=== PATIENT | male | born 1955 | race Caucasian/White ===

== ENCOUNTER 2025-03-12 07:09 | Inpatient (IN) | payer OTHER, MEDICAID ==
[~2025-03-12] VITALS: Ht 172.7 cm; Wt 68.0 kg
[2025-03-12] MEDS: SODIUM CHLORIDE 0.9% 1,000 ML IV ONE ×2 (07:30→10:35)
[2025-03-12] MEDS: levETIRAcetam 1000 mg/100ml 100 ML IV ONE (07:30)
--- NOTE | 2025-03-12 07:31 | ECG ---
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
--- NOTE | 2025-03-12 07:38 | ED.PDOC ---
HPI (NEURO) HPI Comments 70 y/o M, BIBA, with PMHx of epilepsy and HLD presents to the ED for CC of s/p seizure. EMS reports, patient is coming from home where he was found on bed room floor by , followed by a seizure lasting around 4-5 minutes. EMS states, patient has been disoriented since arrival to scene; A&Ox0. Patient is currently on Keppra, Xarelto, and Atorvastatin; no other medications reported. 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, Medications, Allergies Information Source: Patient Mode of Arrival: EMS Severity: Moderate Headache Severity: None Timing: Minutes Duration: Since onset Prehospital treatment: None Seizure Quality: Single Episodes Seizure Location: Generalized Onset: At rest Circumstances: Spontaneous Symptoms: None During: Awake After: Confusion History of: Seizure Disorder Modifying factors: Nothing Past Medical History PAST MEDICAL HISTORY: Seizures Surgical History: Unknown Family History Family History: Unknown Social History Smoker: Non-Smoker Alcohol: Denies ETOH Use Drugs: Denies Drug Use Lives In: Home Unable to Obtain due to: Other (disoriented) Physical Exam General Appearance: No Apparent Distress, Normal HEENT: Normal ENT Inspection, Pharynx Normal, TMs Normal Neck: Full Range of Motion, Non-Tender, Normal, Normal Inspection Respiratory: Chest Non-Tender, Lungs Clear, No Accessory Muscle Use, No Respiratory Distress, Normal Breath Sounds Cardiovascular: No Edema, No Murmur, No Gallop, Normal Peripheral Pulses, Regular Rate/Rhythm Breast Exam: Deferred Gastrointestinal: No Organomegaly, Non Tender, No Pulsatile Mass, Normal Bowel Sounds, Soft Genitalia: Deferred Pelvic: Deferred Rectal: Deferred Extremities: No calf tenderness, Normal capillary refill, Normal inspection, Normal range of motion, Non-tender, No pedal edema Musculoskeletal : Apperance: Normal Neurologic: Disoriented, Other (arousable to painful stimuli) Cerebellar Function: Normal Reflexes: Normal Skin: Dry, Normal Color, Warm Lymphatic: No Adenopathy Was a procedure done? Was a procedure done?: No Differential Diagnosis (SZ) Seizure: Epilepsy-Break Through, Epilepsy-Status X-Ray, Labs, Meds, VS Vital Signs Date Time Temp Pulse Resp B/P (MAP) Pulse Ox O2 Delivery O2 Flow Rate FiO2 5/6/25 10:00 70 18 128/75 (92) 96 03/12/25 08:55 69 17 94 Room Air* 0 21 03/12/25 08:28 77 03/12/25 08:12 64 18 125/79 (94) 96 03/12/25 07:18 98.9 105 18 136/78 (97) 94 98.9 03/12/25 07:12 79 Lab Test 03/12/25 09:17 03/12/25 09:16 03/12/25 08:15 Range/Units Urine Color Light-yellow Yellow Urine Clarity Clear Clear Urine pH 5.0 5.0-9.0 Urine Specific [place] 1.018 1.001-1.035 Urine Protein 1+ H Negative Urine Ketones Trace Negative Urine Blood 2+ H Negative /uL Urine Nitrite Negative Negative Urine Bilirubin Negative Negative Urine Urobilinogen Normal Negative mg/dL Urine Leukocyte Esterase Negative Negative /uL Urine RBC 1 0 - 3 /hpf Urine Microscopic WBC < 1 0-3 /HPF Urine Squamous Epithelial Cells None seen <5 /hpf Urine Bacteria Few H None Seen /hpf Urine Hyaline Casts Mod 0 - 2 /lpf Urine Mucus Few None Seen Urine Yeast (Budding) Occasional None Seen /hpf Urine Glucose 3+ H Normal mg/dL Troponin I High Sensitivity 5 4 </=54 ng/L White Blood Count 11.9 H 4.4-10.8 10^3/uL Red Blood Count 4.42 L 4.5-5.90 10^6/uL Hemoglobin 13.8 13.5-17.5 g/dL Hematocrit 40.5 L 41.0-53.0 % Mean Corpuscular Volume 91.7 80.0-100.0 fL Mean Corpuscular Hemoglobin 31.2 28.0-32.0 pg Mean Corpuscular Hemoglobin Concent 34.0 32.0-36.0 g/dL Red Cell Distribution Width 13.6 11.8-14.3 % Platelet Count 196 140-450 10^3/uL Mean Platelet Volume 7.5 6.9-10.8 fL Neutrophils (%) (Auto) 91.2 H 37.0-80.0 % Lymphocytes (%) (Auto) 4.0 L 10.0-50.0 % Monocytes (%) (Auto) 4.5 0.0-12.0 % Eosinophils (%) (Auto) 0.1 0.0-7.0 % Basophils (%) (Auto) 0.2 0.0-2.0 % Neutrophils # (Auto) 10.9 H 1.6-8.6 10 ^3/uL Lymphocytes # (Auto) 0.5 0.4-5.4 10 ^3/uL Monocytes # (Auto) 0.5 0-1.3 10 ^3/uL Eosinophils # (Auto) 0 0-0.8 10 ^3/uL Basophils # (Auto) 0 0-0.2 10 ^3/uL Nucleated Red Blood Cells 0.0 % Sodium Level 142 136-145 mmol/L Potassium Level 4.5 3.5-5.1 mmol/L Chloride Level 107 98-107 mmol/L Carbon Dioxide Level 27 20-31 mmol/L Anion Gap 8 5-15 Blood Urea Nitrogen 15 9-23 mg/dL Creatinine 1.03 0.700-1.30 mg/dL Glomerular Filtration Rate Calc 79 >90 mL/min BUN/Creatinine Ratio 14.6 10.0-20.0 Serum Glucose 209 H 74-106 mg/dL Lactic Acid Level 4.0 *H 0.4-2.0 mmol/L Calcium Level 9.9 8.7-10.4 mg/dL Current Medications Medications (Trade) Dose Ordered Sig/Nayeli Route Start Time Stop Time Status Last Admin Sodium Chloride 1,000 ml @ 1,000 mls/hr Q1H ONCE IV 03/12/25 07:30 03/12/25 08:29 DC 03/12/25 07:30 Levetiracetam 100 ml @ 400 mls/hr ONCE ONCE IV 03/12/25 07:30 03/12/25 07:44 DC 03/12/25 07:30 Dextrose 50 ml ONCE ONCE IV 03/12/25 07:45 03/12/25 07:46 DC 03/12/25 07:49 Sodium Chloride 1,000 ml @ 1,000 mls/hr Q1H ONCE IV 03/12/25 10:15 03/12/25 11:14 03/12/25 10:[address] [address] Ph: [phone] DIAGNOSTIC IMAGING Diagnostic Imaging Report : [id number] Signed PATIENT: RIZWANA WASHINGTON Baldemar ACCT: [id number] UNIT: [id number] : 1955 LOC: ER ROOM / BED: / AGE / SEX: 69 / M ADM STATUS: REG ER SERVICE 9 ORDERING PHYSICIAN: DAVIDE BARNARD MD PROCEDURE(s): CXRP - CHEST PORTABLE REASON: seizure ORDER NUMBER(s): [id number], ACCESSION NUMBER(s): [id number] EXAM: XY CHEST PORTABLE Indication: seizure Technique: Single frontal view of the chest was obtained Comparison: None FINDINGS: Lines and Tubes: Cardiac pacemaker projects over left chest wall. Lungs: No focal consolidation. Pleura: No effusion. No pneumothorax. Cardiomediastinal contours: Unremarkable. Atherosclerotic vascular calcifications of the thoracic aorta are noted. Bones: No acute osseous abnormality. IMPRESSION: No acute cardiopulmonary disease. ATED BY: CRIS VILLANUEVA MD DICTATED DATE/TIME: 03/12/25819 SIGNED BY: CRIS VILLANUEVA MD SIGNED DATE/TIME: 03/12/25819 CC: [place] [id number] Ph: [phone] DIAGNOSTIC IMAGING Diagnostic Imaging Report : [id number] Signed PATIENT: RIZWANA WASHINGTON ACCT: [id number] UNIT: [id number] : 11/27/1954 LOC: ER ROOM / BED: / AGE / SEX: 70 / M ADM STATUS: REG ER SERVICE 9 ORDERING PHYSICIAN: DAVIDE BARNARD MD PROCEDURE(s): HWOCT - HEAD WITHOUT CONTRAST REASON: seizure, headstrike on xarelto ORDER NUMBER(s): [id number], ACCESSION NUMBER(s): [id number] CLINICAL INFORMATION: Seizure. Head strike. On Xarelto. TECHNIQUE: Axial imaging was obtained through the brain without contrast. Coronal and sagittal reformatted images were obtained, reviewed, and stored. Images were reviewed in brain and bone windows. All CT scans at this medical facility are performed using dose modulation techniques as appropriate to a performed exam including the following: Automated exposure control was utilized; adjustment of the MA and/or KV according to patient size; and use of iterative reconstruction technique. CTDIvol = 47.94 mGy DLP = 1107.1 mGy-cm COMPARISON: None FINDINGS: There is no acute intracranial hemorrhage. No mass effect or midline shift. The ventricles and sulci are within normal limits in size for age. Basal cisterns are patent. The calvarium is unremarkable. Paranasal sinuses and ma stoid air cells are clear. IMPRESSION: No CT evidence of acute intracranial abnormality. ATED BY: RODRIGUEZ MOLINA DO DICTATED DATE/TIME: 03/12/25815 SIGNED BY: RODRIGUEZ MOLINA DO SIGNED DATE/TIME: 03/12/25815 CC: Time of 1ST Reevaluation: 08:00 Reevaluation 1ST: Unchanged Patient Education/Counseling: Diagnosis, Treatment Family Education/Counseling: No Family Present Departure 1 Departure Time of Disposition: 10:42 (Patient with worsening seizures. Family is concerned about taking care of him at home. We will admit patient for further workup.) Impression: Primary Impression: Seizure disorder Disposition: ADMITTED INPATIENT Admit to: Med Surg Condition: Serious Critical Care Note Critical Care Time?: Yes Critical care comment: Seizures Authorized and Performed by: Davide Barnard MD Total critical care time: Approximately 32 minutes Due to a high probability of clinically significant, life threatening deterioration, the patient required my highest level of preparedness to intervene emergently and I personally spent this critical care time directly and personally managing the patient. This critical care time included obtaining a history; examining the patient; pulse oximetry; ordering and review of studies; arranging urgent treatment with development of a management plan; evaluation of patient's response to treatment; frequent reassessment; and, discussions with other providers. This critical care time was performed to assess and manage the high probability of imminent, life-threatening deterioration that could result in multi-organ failure. It was exclusive of separately billable procedures and treating other patients and teaching time. Please see my other sections and the rest of the note for further information on patient assessment and treatment. Stability Stability form required: No Heart Score Heart Score: Heart Score Response (Comments) Value History N/A 0 EKG N/A 0 Age N/A 0 Risk Factors N/A 0 Troponin N/A 0 Total 0 I personally scribed for DAVIDE BARNARD MD ([email or web address]) on 03/12/25 at 07:38. Electronically submitted by Krysten Woodson ([email or web address]). I personally scribed for DAVIDE BARNARD MD ([email or web address]) on 03/12/25 at 08:39. Electronically submitted by Krysten Woodson ([email or web address]). I personally scribed for DAVIDE BARNARD MD ([email or web address]) on 03/12/25 at 08:40. Electronically submitted by Krysten Woodson ([email or web address]). DAVIDE BARNARD MD March 12, 2025 07:38
[2025-03-12] MEDS: DEXTROSE (50%) 50ML SYRG IV ONE (07:49)
[2025-03-12] MEDS: DEXTROSE 50% SYRINGE 50 ML IV ONE (07:49)
--- NOTE | 2025-03-12 08:19 | DVH ---
CLINICAL INFORMATION: Seizure. Head strike. On Xarelto. TECHNIQUE: Axial imaging was obtained through the brain without contrast. Coronal and sagittal reform atted images were obtained, reviewed, and stored. Images were reviewed in brain and bone windows. Al l CT scans at this medical facility are performed using dose modulation techniques as appropriate to a performed exam including the following: Automated exposure control was utilized; adjustment of the MA and/or KV according to patient size; and use of iterative reconstruction technique. CTDIvol = 47.9 4 mGy DLP = 1107.1 mGy-cm COMPARISON: None FINDINGS: There is no acute intracranial hemorrhage. No mass effect or midline shift. The ventricles and sulci are within normal limits in size for age. Basal cisterns are patent. The calvarium is unre markable. Paranasal sinuses and mastoid air cells are clear. IMPRESSION: No CT evidence of acute intracranial abnormality.
--- NOTE | 2025-03-12 08:23 | DVH ---
EXAM: XY CHEST PORTABLE Indication: seizure Technique: Single frontal view of the chest was obtained Comparison: None FINDINGS: Lines and Tubes: Cardiac pacemaker projects over left chest wall. Lungs: No focal consolidation. Pleura: No effusion. No pneumothorax. Cardiomediastinal contours: Unremarkable. Atherosclerotic vascular calcifications of the thoracic ao rta are noted. Bones: No acute osseous abnormality. IMPRESSION: No acute cardiopulmonary disease.
[2025-03-12 08:43] LABS: Basophils # (auto) 0 10 ^3/uL (0-0.2); Basophils % (auto) 0.2 % (0.0-2.0); Eosinophils # (auto) 0 10 ^3/uL (0-0.8); Eosinophils % (auto) 0.1 % (0.0-7.0); Hematocrit 40.5 % (41.0-53.0); Hemoglobin 13.8 g/dL (13.5-17.5); Lymphocytes # (auto) 0.5 10 ^3/uL (0.4-5.4); Mean Corpuscular Hemoglobin 31.2 pg (28.0-32.0); Mean Corpuscular Volume 91.7 fL (80.0-100.0); Monocytes # (auto) 0.5 10 ^3/uL (0-1.3); Monocytes % (auto) 4.5 % (0.0-12.0); Neutrophils # (auto) 10.9 10 ^3/uL (1.6-8.6); Neutrophils % (auto) 91.2 % (37.0-80.0); Platelet Count (auto) 196 10^3/uL (140-450); Red Blood Cells 4.42 10^6/uL (4.5-5.90); Red Cell Distribution Width 13.6 % (11.8-14.3); White Blood Cell 11.9 10^3/uL (4.4-10.8)
[2025-03-12 08:46] LABS: Chloride 107 mmol/L (98-107); Potassium 4.5 mmol/L (3.5-5.1); Sodium 142 mmol/L (136-145)
[2025-03-12 08:47] LABS: Anion Gap 8 (5-15); Calcium 9.9 mg/dL (8.7-10.4); Carbon Dioxide 27 mmol/L (20-31)
[2025-03-12 08:52] LABS: BUN/Creatinine Ratio 14.6 (10.0-20.0); Blood Urea Nitrogen 15 mg/dL (9-23)
[2025-03-12 08:53] LABS: Glucose 209 mg/dL (74-106)
[2025-03-12 08:55] VITALS: PULSE 69; RESP 17; O2SAT 94
[2025-03-12 09:50] LABS: Urine Bacteria FEW /hpf (None Seen); Urine Blood 2+ /uL (Negative); Urine Budding Yeast OCCASIONAL /hpf (None Seen); Urine Clarity Clear (Clear); Urine Color Light-Yellow (Yellow); Urine Hyaline Cast MOD /lpf (0 - 2); Urine Mucus FEW (None Seen); Urine Protein, UAD 1+ (Negative); Urine Specific Gravity 1.018 (1.001-1.035); Urine Squamous Epithelial Cell None Seen /hpf (<5); Urine Urobilinogen Normal (Negative); Urine WBC < 1 /HPF (0-3)
[2025-03-12] MEDS ORDERED: MORPHINE SULFATE INJ 2 MG/ml SYRG IV PRN (13:45)
[2025-03-12] MEDS ORDERED: ONDANSETRON HCL 4 MG/2 ML VIAL IV PRN (13:45)
[2025-03-12] MEDS ORDERED: DOCUSATE SOD 100 MG CAP PO PRN (13:45)
[2025-03-12] MEDS ORDERED: NITROGLYCERIN 0.4 MG SL TAB SL PRN (13:45)
[2025-03-12] MEDS ORDERED: ATOR10TA52 PO (13:50)
[2025-03-12] MEDS ORDERED: MET25T PO (13:50)
[2025-03-12] MEDS ORDERED: LEVO50TA7 PO (13:50)
[2025-03-12] MEDS ORDERED: LEVE500T3 PO (13:50)
--- NOTE | 2025-03-12 14:06 | DVHHP2 ---
History of Present Illness Reason for Visit: Seizure History of Present Illness Sang Moore is a 69-year-old male with past medical history of hypothyroidism, hyperlipidemia, and seizures who came in for a seizure. Per EMS the patient was at home when he had a seizure witnessed by his , she called EMS. On assessment the patient is oriented x1, can tell me he is in the hospital, but not what hospital or what city he is in. He is repetitive when answering questions and keeps telling me he is just tired. I attempted to come and assess the patient again a couple hours later but he continues to not be able to answer my questions appropriately. He is not sure what the date is, who the president is, or his past medical history. 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 Endocrine: Hypothyroidism Past Surgical History: Tonsillectomy Smoke: No ALCOHOL: none Drugs: None Lives: with Family Domestic Violence: Neg Review of Systems Constitutional: No: Fever, Chills, Sweats, Weakness, Malaise, Other Eyes: No: Pain, Vision change, Conjunctivae inflammation, Eyelid inflammation, Other, Redness ENT: No: Ear pain, Ear discharge, Nose pain, Nose discharge, Nose congestion, Mouth pain, Mouth swelling, Throat pain, Throat swelling, Other Respiratory: No: Cough, Dry, Shortness of breath, SOB with excertion, Wheezing, Hemoptysis, Pleuritic Pain, Sputum, Wheezing, Other Cardiovascular: No: Chest Pain, Palpitations, Orthopnea, Paroxysmal Noc. Dyspnea, Edema, Lt Headedness, Other Gastrointestinal: No: Nausea, Vomiting, Abdominal Pain, Diarrhea, Constipation, Melena, Hematochezia, Other Genitourinary: No Dysuria, No Frequency, No Incontinence, No Hematuria, No Retention, No Other Musculoskeletal: No: other, neck pain, shoulder pain, arm pain, back pain, hand pain, leg pain, foot pain Skin: No: Rash, Lesions, Jaundice, Bruising, Other Neurological: Confusion, Seizures; No: Weakness, Numbness, Incoordination, Change in speech, Other Allergies: Coded Allergies: NO KNOWN ALLERGIES (Unverified , 03/12/25) Medications Current Medications Medications Dose Ordered Sig/Nayeli Route Start Time Stop Time Status Last Admin Dose Admin Acetaminophen/ Hydrocodone Bitart 1 tab Q4HP PRN PO 03/12/25 13:45 UNV Ondansetron HCl 4 mg Q4HP PRN IV 03/12/25 13:45 UNV Docusate Sodium 100 mg BIDPRN PRN PO 03/12/25 13:45 UNV Acetaminophen 650 mg Q6HP PRN PO 03/12/25 13:45 UNV Nitroglycerin 0.4 mg Q5MINP PRN SL 03/12/25 13:45 UNV Morphine Sulfate 2 mg Q30M PRN IV 03/12/25 13:45 UNV Levetiracetam 500 mg BID PO 03/12/25 22:00 UNV Levothyroxine Sodium 50 mcg DAILY PO 03/13/25 10:00 UNV Metoprolol Tartrate 25 mg BID PO 03/12/25 22:00 UNV Patient Own Medication 1 tab DAILY PO 03/13/25 10:00 UNV Exam Vital Signs Vital Signs Date Time Temp Pulse Resp B/P (MAP) Pulse Ox O2 Delivery O2 Flow Rate FiO2 03/12/25 12:00 65 03/12/25 12:00 19 127/73 (91) 100 03/12/25 08:55 Room Air* 0 21 03/12/25 07:18 98.9 98.9 General Appearance: Alert, Cooperative, Other (Oriented x1, can tell me he is in the hospital, but not what hospital or what city he is in. He is repetitive when answering questions) HEENT: Atraumatic, PERRLA Respiratory: Clear to auscultation, Normal air movement Cardiovascular: Regular rate, Normal S1, Normal S2 Abdominal: Normal bowel sounds, Soft, No tenderness Extremities: No clubbing, No cyanosis, No edema, Normal pulses Skin: No rashes, No breakdown, No significant lesion Neuro: Other (Oriented x1, can tell me he is in the hospital, but not what hospital or what city he is in. He is repetitive when answering questions. Unable to provide medical history. States he is sorry, he is tired) Psych/Mental Status: Mental status NL Labs/Xrays Labs Test 03/12/25 11:00 03/12/25 09:17 03/12/25 08:15 Range/Units Lactic Acid Level 1.4 0.4-2.0 mmol/L Troponin I High Sensitivity 7 </=54 ng/L Urine Color Light-yellow Yellow Urine Clarity Clear Clear Urine pH 5.0 5.0-9.0 Urine Specific [place] 1.018 1.001-1.035 Urine Protein 1+ H Negative Urine Ketones Trace Negative Urine Blood 2+ H Negative /uL Urine Nitrite Negative Negative Urine Bilirubin Negative Negative Urine Urobilinogen Normal Negative mg/dL Urine Leukocyte Esterase Negative Negative /uL Urine RBC 1 0 - 3 /hpf Urine Microscopic WBC < 1 0-3 /HPF Urine Squamous Epithelial Cells None seen <5 /hpf Urine Bacteria Few H None Seen /hpf Urine Hyaline Casts Mod 0 - 2 /lpf Urine Mucus Few None Seen Urine Yeast (Budding) Occasional None Seen /hpf Urine Glucose 3+ H Normal mg/dL White Blood Count 11.9 H 4.4-10.8 10^3/uL Red Blood Count 4.42 L 4.5-5.90 10^6/uL Hemoglobin 13.8 13.5-17.5 g/dL Hematocrit 40.5 L 41.0-53.0 % Mean Corpuscular Volume 91.7 80.0-100.0 fL Mean Corpuscular Hemoglobin 31.2 28.0-32.0 pg Mean Corpuscular Hemoglobin Concent 34.0 32.0-36.0 g/dL Red Cell Distribution Width 13.6 11.8-14.3 % Platelet Count 196 140-450 10^3/uL Mean Platelet Volume 7.5 6.9-10.8 fL Neutrophils (%) (Auto) 91.2 H 37.0-80.0 % Lymphocytes (%) (Auto) 4.0 L 10.0-50.0 % Monocytes (%) (Auto) 4.5 0.0-12.0 % Eosinophils (%) (Auto) 0.1 0.0-7.0 % Basophils (%) (Auto) 0.2 0.0-2.0 % Neutrophils # (Auto) 10.9 H 1.6-8.6 10 ^3/uL Lymphocytes # (Auto) 0.5 0.4-5.4 10 ^3/uL Monocytes # (Auto) 0.5 0-1.3 10 ^3/uL Eosinophils # (Auto) 0 0-0.8 10 ^3/uL Basophils # (Auto) 0 0-0.2 10 ^3/uL Nucleated Red Blood Cells 0.0 % Sodium Level 142 136-145 mmol/L Potassium Level 4.5 3.5-5.1 mmol/L Chloride Level 107 98-107 mmol/L Carbon Dioxide Level 27 20-31 mmol/L Anion Gap 8 5-15 Blood Urea Nitrogen 15 9-23 mg/dL Creatinine 1.03 0.700-1.30 mg/dL Glomerular Filtration Rate Calc 79 >90 mL/min BUN/Creatinine Ratio 14.6 10.0-20.0 Serum Glucose 209 H 74-106 mg/dL Calcium Level 9.9 8.7-10.4 mg/dL TECHNIQUE: Axial imaging was obtained through the brain without contrast. FINDINGS: There is no acute intracranial hemorrhage. No mass effect or midline shift. The ventricles and sulci are within normal limits in size for age. Basal cisterns are patent. The calvarium is unremarkable. Paranasal sinuses and mastoid air cells are clear. IMPRESSION: No CT evidence of acute intracranial abnormality. EXAM: XY CHEST PORTABLE FINDINGS: Lines and Tubes: Cardiac pacemaker projects over left chest wall. Lungs: No focal consolidation. Pleura: No effusion. No pneumothorax. Cardiomediastinal contours: Unremarkable. Atherosclerotic vascular calcifications of the thoracic aorta are noted. Bones: No acute osseous abnormality. IMPRESSION: No acute cardiopulmonary disease. Assessment/Plan Assessment/Plan Assessment: Seizure disorder, Hyperglycemia, Hypothyroidism, Hyperlipidemia, Plan: Admit to Tele, Neurology consult, Seizure precautions, TSH and A1c, Accu checks Q AC&HS with sliding scale coverage, Home medications reconciled, Plan discussed with: Patient My Orders Orders - DUARTE BALDERAS Procedure Category Date Status Time Admit ADMIT 03/12/25 Transmitted 13:43 Code Status CODE 03/12/25 Transmitted 13:43 Hydrocodone-Acet PHA 03/12/25 Logged 5/325mg Tab ([place] 13:45 Ondansetron Hcl PHA 03/12/25 Logged (Zofran) 13:45 Docusate Sodium PHA 03/12/25 Logged Capsule (Colace 13:45 Complete Blood Count LAB 03/13/25 Verified 04:00 Comprehensive LAB 03/13/25 Verified Metabolic Panel 04:00 Condition: Critical [facility] 03/12/25 In Process 13:43 Acetaminophen Tablet PHA 03/12/25 Logged (Tylenol Tablet) 13:45 Nitroglycerin PHA 03/12/25 Logged Sublingual (Ntrostat 13:45 Morphine Sulfate PHA 03/12/25 Logged Injection 13:45 Stat Ekg For Chest [facility] 03/12/25 Transmitted Pain 13:43 Notify Md Of Changes [facility] 03/12/25 In Process From Base 13:43 Telemarketing Representative For [facility] 03/12/25 In Process 24 Hours 13:43 Emergency Dysrhythmia [facility] 03/12/25 In Process Protocol 13:43 Rhythm Strips Once [facility] 03/12/25 In Process Every Shift 13:43 Oxygen By Nasal 03/12/25 Transmitted Cannula 13:43 Levetiracetam Tablet [facility] 03/12/25 Logged (Keppra Tablet) 22:00 Levothyroxine Tablet [facility] 03/13/25 Logged (Synthroid Tablet) 10:00 Metoprolol Tartrate [facility] 03/12/25 Logged Tablet (Lopressor Ta 22:00 (Nf) Atorvastatin [facility] 03/13/25 Logged Calcium 10:00 Date of Service: March 12, 2025 Billing Provider: DUARTE BALDERAS Common Visit Codes: [id number] INP/OBS CARE (MOD) DUARTE BALDERAS March 12, 2025 14:06
[2025-03-12] MEDS ORDERED: DEXTROSE (50%) 50ML SYRG IV PRN (18:00)
[2025-03-12 20:00] VITALS: PULSE 65; RESP 16; O2SAT 97
[2025-03-12] MEDS: InsuLIN REG 1unit/0.01ml Soln (100units/ml) SC SCH (22:00)
[2025-03-12] MEDS: ATORVASTATIN 20 MG TAB PO SCH (22:12)
[2025-03-12] MEDS: levETIRAcetam 500 MG TAB PO SCH (22:12)
[2025-03-12] MEDS: METOPROLOL TARTRATE 25 MG TAB PO SCH (22:13)
[2025-03-12] MEDS: ACCU-CHEK COMFORT CURVE STRIP VI SCH (22:15)
[2025-03-12 22:57] VITALS: BP 131/73; PULSE 66; RESP 18; TEMP 99.3; O2SAT 97
[2025-03-13] VITALS (8 sets, daily range): BP systolic 99–131; BP diastolic 59–82; PULSE 42–90; RESP 18; TEMP 97.6–99; O2SAT 98
[2025-03-13] MEDS: LEVOTHYROXINE SODIUM 50 MCG TAB PO SCH (06:17)
[2025-03-13] MEDS: InsuLIN REG 1unit/0.01ml Soln (100units/ml) SC SCH (06:18)
[2025-03-13 07:09] LABS: Basophils # (auto) 0.1 10 ^3/uL (0-0.2); Basophils % (auto) 0.6 % (0.0-2.0); Eosinophils # (auto) 0 10 ^3/uL (0-0.8); Eosinophils % (auto) 0.5 % (0.0-7.0); Hematocrit 39.5 % (41.0-53.0); Hemoglobin 13.7 g/dL (13.5-17.5); Lymphocytes # (auto) 1.1 10 ^3/uL (0.4-5.4); Mean Corpuscular Hemoglobin 31.5 pg (28.0-32.0); Mean Corpuscular Hgb Conc. 34.7 g/dL (32.0-36.0); Mean Corpuscular Volume 90.6 fL (80.0-100.0); Monocytes # (auto) 0.9 10 ^3/uL (0-1.3); Monocytes % (auto) 9.3 % (0.0-12.0); Neutrophils # (auto) 7.5 10 ^3/uL (1.6-8.6); Neutrophils % (auto) 78.6 % (37.0-80.0); Platelet Count (auto) 178 10^3/uL (140-450); Red Blood Cells 4.37 10^6/uL (4.5-5.90); Red Cell Distribution Width 13.5 % (11.8-14.3); White Blood Cell 9.6 10^3/uL (4.4-10.8)
[2025-03-13 07:25] LABS: Alanine Aminotransferase 25 U/L (7-40); Albumin 4.1 g/dL (3.2-4.8); Alkaline Phosphatase 50 U/L (46-116); Anion Gap 7 (5-15); Aspartate Aminotransferase 22 U/L (13-40); BUN/Creatinine Ratio 18.3 (10.0-20.0); Blood Urea Nitrogen 15 mg/dL (9-23); Calcium 9.8 mg/dL (8.7-10.4); Carbon Dioxide 25 mmol/L (20-31); Glucose 106 mg/dL (74-106); Potassium 4.1 mmol/L (3.5-5.1); Sodium 144 mmol/L (136-145)
[2025-03-13 07:26] LABS: Bilirubin, Total 1.2 mg/dL (0.2-1.0)
[2025-03-13 07:31] LABS: Chloride 112 mmol/L (98-107)
[2025-03-13] MEDS: HYDROcodone-ACET 5/325MG TAB PO PRN (16:10)
--- NOTE | 2025-03-13 22:44 | DVHPN2 ---
Subjective The patient is seen and examined at bedside. No seizure activity today. Reviewed: Care Plan, H&P, Labs, Medications, Previous Orders Changes from previous H/P or p: No Changes Eyes: No Pain, No Vision change, No Conjunctivae inflammation, No Eyelid inflammation, No Other, No Redness ENT: No Ear pain, No Ear discharge, No Nose pain, No Nose discharge, No Nose congestion, No Mouth pain, No Mouth swelling, No Throat pain, No Throat swelling, No Other Cardiovascular: No Chest Pain, No Palpitations, No Orthopnea, No Paroxysmal Noc. Dyspnea, No Edema, No Lt Headedness, No Other Respiratory: No Cough, No Dry, No Shortness of breath, No SOB with excertion, No Wheezing, No Hemoptysis, No Pleuritic Pain, No Sputum, No Other Gastrointestinal: No Nausea, No Vomiting, No Abdominal Pain, No Diarrhea, No Constipation, No Melena, No Hematochezia, No Other Genitourinary: No Dysuria, No Frequency, No Incontinence, No Hematuria, No Retention, No Other Musculoskeletal: No other, No neck pain, No shoulder pain, No arm pain, No back pain, No hand pain, No leg pain, No foot pain Skin: No Rash, No Lesions, No Jaundice, No Bruising, No Other Objective Vitals Vital Signs Date Time Temp Pulse Resp B/P (MAP) Pulse Ox O2 Delivery O2 Flow Rate FiO2 03/13/25 21:17 79 131/71 03/13/25 17:00 98.5 18 98 98.5 03/13/25 08:00 Room Air* 0 21 Intake/Output Intake and Output 03/13/25 07:00 Intake Total 2650 ml Balance 2650 ml Intake Oral 250 ml IV Total 2400 ml # Voids 2 # Bowel Movements 1 General Appearance: Alert, Oriented X3, Cooperative, No acute distress HEENT: Atraumatic, PERRLA, EOMI, Mucous membr. moist/pink Neck: Supple Lungs: Clear to auscultation, Normal air movement Cardiovascular: Regular rate, Normal S1, Normal S2, No murmurs, Gallops, Rubs Abdomen: Normal bowel sounds, Soft, No tenderness Neuro: Cranial nerves 3-12 NL Psych/Mental Status: Mental status NL Medications Current Medications Medications Dose Ordered Sig/Nayeli Route Start Time Stop Time Status Last Admin Dose Admin Acetaminophen/ Hydrocodone Bitart 1 tab Q4HP PRN PO 03/12/25 13:45 03/13/25 16:10 1 TAB Ondansetron HCl 4 mg Q4HP PRN IV 03/12/25 13:45 Docusate Sodium 100 mg BIDPRN PRN PO 03/12/25 13:45 Acetaminophen 650 mg Q6HP PRN PO 03/12/25 13:45 Nitroglycerin 0.4 mg Q5MINP PRN SL 03/12/25 13:45 Morphine Sulfate 2 mg Q30M PRN IV 03/12/25 13:45 Levetiracetam 500 mg BID PO 03/12/25 22:00 03/13/25 21:16 500 MG Levothyroxine Sodium 50 mcg QAM PO 03/13/25 07:00 03/13/25 06:17 50 MCG Metoprolol Tartrate 25 mg BID PO 03/12/25 22:00 03/13/25 21:17 25 MG Atorvastatin Calcium 10 mg HS PO 03/12/25 22:00 03/13/25 21:16 10 MG Diagnostic Test (Pha) 1 strip ACHS 03/12/25 22:00 03/13/25 21:17 1 STRIP Insulin Human Regular HS SC 03/12/25 22:00 Insulin Human Regular AC SC 03/13/25 07:00 Dextrose 50 ml UD PRN IV 03/12/25 18:00 Laboratory Results Laboratory Tests 03/13/25 06:46 Chemistry Test 03/13/25 06:46 Albumin 4.1 g/dL (3.2-4.8) Calcium Level 9.8 mg/dL (8.7-10.4) Total Protein 6.0 g/dL (5.7-8.2) LFT Test 03/13/25 06:46 Alanine Aminotransferase (ALT) 25 U/L (7-40) Alkaline Phosphatase 50 U/L (46-116) Aspartate Amino Transferase (AST) 22 U/L (13-40) Total Bilirubin 1.2 mg/dL (0.2-1.0) H HgA1c, TSH Test 03/13/25 06:46 Hemoglobin A1c 5.1 % A1C (<5.7) Thyroid Stimulating Hormone (TSH) 0.34 uIU/mL (0.55-4.78) L Urinalysis Test 03/12/25 09:17 Urine Color Light-yellow (Yellow) Urine Clarity Clear (Clear) Urine pH 5.0 (5.0-9.0) Urine Specific [place] 1.018 (1.001-1.035) Urine Protein 1+ (Negative) H Urine Ketones Trace (Negative) Urine Blood 2+ /uL (Negative) H Urine Nitrite Negative (Negative) Urine Bilirubin Negative (Negative) Urine Urobilinogen Normal mg/dL (Negative) Urine Leukocyte Esterase Negative /uL (Negative) Urine RBC 1 /hpf (0 - 3) Urine Microscopic WBC < 1 /HPF (0-3) Urine Squamous Epithelial Cells None seen /hpf (<5) Urine Bacteria Few /hpf (None Seen) H Urine Hyaline Casts Mod /lpf (0 - 2) Urine Mucus Few (None Seen) Urine Yeast (Budding) Occasional /hpf (None Urine Glucose 3+ mg/dL (Normal) H Labs and/or images reviewed: Labs reviewed by me Assessment/Plan Assessment/Plan Seizure disorder, Hyperglycemia, Hypothyroidism, Hyperlipidemia, Continuing current management. Sliding scale insulin for now Waiting for neurologist to see the patient For MRI to rule out CVA Continuing Keppra for now This medical document was created using an electronic medical record system with [employer] direct computerized dictation system. Although this document has been carefully reviewed, there may still be some phonetic and typographical errors. These areas are purely typographical due to imperfections of the software programs, and do not reflect any compromise in the patient's medical care. Plan discussed with: Patient My Orders Orders - EDINSON CHIU MD Procedure Category Date Status Time Consistent DIET 03/13/25 [facility] Lunch Date of Service: March 13, 2025 Billing Provider: EDINSON CHIU MD Common Visit Codes: [id number] INP/OBS CARE(HIGH) EDINSON CHIU MD March 13, 2025 22:44
--- NOTE | 2025-03-13 23:31 | DVHINCON2 ---
Date of service: March 13, 2025 Referring Physician Will Reason for Consultation Seizure History of Present Illness Mr. Moore is a right-handed male with a history of hypertension, hypothyroid disease, atrial fibrillation, chronic low back pain. He came to the [facility] on 03/12/2025 with a chief complaint of seizure activity. At this time, he is alert and fully oriented, he provided the following history He does not remember, but he was said to have seizure attacks x3 at home, when he woke up, he was laceration in the tongue He was grand mal seizure since 2021, I saw him in office, he was on Keppra and the dosage was increased from 500 b.i.d. to 750 mg b.i.d. since 12/2024. Keppra causes we will swing, I recommend him to use Briviact however for some reason, he was not received this medication yet Urinalysis, 03/12/2025: WBC: One, urine leukocyte esterase: Negative CBC, 03/13/2025: Unremarkable CMP, 03/13/2025: TBI: 1.2 Reports from office EEG, 02/23/24 Normal EEG, 02/14/25: Normal 61-minute EEG CT head 12/27/23: Unremarkable CT head, 03/12/2025: No CT evidence of acute intracranial abnormality Past Medical History Hypertension, Depression, Thyroid gland problems, A fib, Heart Monitor Past Surgical History Three hernias, Left Testicle, pacemaker insertion (2022) Family History: Patient reports no known family medical history. Family History Anxiety, Seizure, Alcohol Social History Alcoho abuse, previous No history of drug abuse Smoking Status: Smoker Allergies: Coded Allergies: NO KNOWN ALLERGIES (Unverified , 03/12/25) Home Meds Reported Medications Levothyroxine Sodium (Levothyroxine Sodium) 50 Mcg Tab, 1 TAB PO DAILY 03/12/25 Levetiracetam (Levetiracetam) 500 Mg Tab, 1 TAB PO BID 03/12/25 Metoprolol Tartrate (Lopressor) 25 Mg Tb, 1 TAB PO BID 03/12/25 Atorvastatin Calcium (ATORVASTATIN CALCIUM) 10 Mg Tab, 1 TAB PO DAILY 03/12/25 Current Medications Current Medications Medications (Trade) Dose Ordered Sig/Nayeli Route PRN Reason Start Time Stop Time Status Last Admin Levothyroxine Sodium (Synthroid Tablet) 50 mcg QAM PO 03/13/25 07:00 03/13/25 06:17 Insulin Human Regular (InsuLIN R) AC SC 03/13/25 07:00 Review of Systems As above, the other systems are negative Vital Signs Vital Signs Date Time Temp Pulse Resp B/P (MAP) Pulse Ox O2 Delivery O2 Flow Rate FiO2 03/13/25 21:17 79 131/71 03/13/25 17:00 98.5 18 98 98.5 03/13/25 08:00 Room Air* 0 21 Physical Exam GENERAL EXAM: General: the patient is well developed and nourished. No acute distress. HEENT: Normocephalic, neck is supple, no carotid bruits. No mass. RESPIRATORY: Normal respiratory effort with symmetrical lung expansion. Lungs clear to auscultation. CARDIOVASCULAR: Regular rate and rhythm with no murmurs. S1, S2. ABDOMEN: Soft, nontender, normal bowel sound NEUROLOGICAL: MENTAL STATUS: Awake and alert. Oriented to person, place, time and general circumstances. Able to give personal history. SPEECH, LANGUAGE, HIGHER CORTICAL FUNCTION: no aphasia or dysathria. CRANIAL NERVES: #2: Intact visual randle to confrontation. The optic discs were sharp #3,4,6: Pupils are equal, round and reactive. EOMs full and conjugate. No nystagmus. #5: Facial sensation intact in all three divisions bilaterally. Mandibular strength intact. #7: Facial muscles symmetrical and strength intact. #8: Hearing grossly normal to voice. #9,10: Uvula and soft palate rise in the midline. Swallow and voice are normal. #11: Trapezius and sternomastoid strength intact bilaterally. #12: Tongue midline. No fasciculations or atrophy. SENSATION: Sensation to touch and pinprick is normal. MOTOR: Normal tone in the upper and lower extremity. Normal muscle bulk. No fasciculations. No abnormal movements or posturing. Muscle strength of the major groups in the upper extremities is 5/5. Muscle strength of the major groups in the lower extremities is 5/5. REFLEXES: Deep tendon reflexes normal and symmetrical. No pathological reflexes. CEREBELLAR/COORDINATION: Finger to nose and heel to geronimo are normal bilaterally. GAIT/STATION: Unremarkable Labs/Diagnostic Data Labs Test 03/13/25 21:06 03/13/25 06:46 03/12/25 11:00 03/12/25 09:17 Range/Units POC Glucose 101 70-106 mg/dl White Blood Count 9.6 4.4-10.8 10^3/uL Red Blood Count 4.37 L 4.5-5.90 10^6/uL Hemoglobin 13.7 13.5-17.5 g/dL Hematocrit 39.5 L 41.0-53.0 % Mean Corpuscular Volume 90.6 80.0-100.0 fL Mean Corpuscular Hemoglobin 31.5 28.0-32.0 pg Mean Corpuscular Hemoglobin Concent 34.7 32.0-36.0 g/dL Red Cell Distribution Width 13.5 11.8-14.3 % Platelet Count 178 140-450 10^3/uL Mean Platelet Volume 7.3 6.9-10.8 fL Neutrophils (%) (Auto) 78.6 37.0-80.0 % Lymphocytes (%) (Auto) 11.0 10.0-50.0 % Monocytes (%) (Auto) 9.3 0.0-12.0 % Eosinophils (%) (Auto) 0.5 0.0-7.0 % Basophils (%) (Auto) 0.6 0.0-2.0 % Neutrophils # (Auto) 7.5 1.6-8.6 10 ^3/uL Lymphocytes # (Auto) 1.1 0.4-5.4 10 ^3/uL Monocytes # (Auto) 0.9 0-1.3 10 ^3/uL Eosinophils # (Auto) 0 0-0.8 10 ^3/uL Basophils # (Auto) 0.1 0-0.2 10 ^3/uL Nucleated Red Blood Cells 0.0 % Sodium Level 144 136-145 mmol/L Potassium Level 4.1 3.5-5.1 mmol/L Chloride Level 112 H 98-107 mmol/L Carbon Dioxide Level 25 20-31 mmol/L Anion Gap 7 5-15 Blood Urea Nitrogen 15 9-23 mg/dL Creatinine 0.82 0.700-1.30 mg/dL Glomerular Filtration Rate Calc 95 >90 mL/min BUN/Creatinine Ratio 18.3 10.0-20.0 Serum Glucose 106 # 74-106 mg/dL Hemoglobin A1c 5.1 <5.7 % A1C Calcium Level 9.8 8.7-10.4 mg/dL Total Bilirubin 1.2 H 0.2-1.0 mg/dL Aspartate Amino Transferase (AST) 22 13-40 U/L Alanine Aminotransferase (ALT) 25 7-40 U/L Alkaline Phosphatase 50 46-116 U/L Total Protein 6.0 5.7-8.2 g/dL Albumin 4.1 3.2-4.8 g/dL Thyroid Stimulating Hormone (TSH) 0.34 L 0.55-4.78 uIU/mL Lactic Acid Level 1.4 0.4-2.0 mmol/L Troponin I High Sensitivity 7 </=54 ng/L Urine Color Light-yellow Yellow Urine Clarity Clear Clear Urine pH 5.0 5.0-9.0 Urine Specific [place] 1.018 1.001-1.035 Urine Protein 1+ H Negative Urine Ketones Trace Negative Urine Blood 2+ H Negative /uL Urine Nitrite Negative Negative Urine Bilirubin Negative Negative Urine Urobilinogen Normal Negative mg/dL Urine Leukocyte Esterase Negative Negative /uL Urine RBC 1 0 - 3 /hpf Urine Microscopic WBC < 1 0-3 /HPF Urine Squamous Epithelial Cells None seen <5 /hpf Urine Bacteria Few H None Seen /hpf Urine Hyaline Casts Mod 0 - 2 /lpf Urine Mucus Few None Seen Urine Yeast (Budding) Occasional None Seen /hpf Urine Glucose 3+ H Normal mg/dL Assessment Status epileptics Grand mal seizure Mood swing secondary to Keppra side effects Plan/Recommendation Monitoring Supportive treatment Telemetry MR brain scan Increase the Keppra to 1000 mg b.i.d. We will try Briviact 75 mg b.i.d. if I can provide sample Ativan for seizure breakthrough More recommendation per clinical course Progress: Poor This medical document was created using an electronic medical record system with [employer] dictation system. Although this document has been carefully reviewed, there may still be some phonetic and typographical errors. These areas are purely typographical due to imperfections of the software programs, and do not reflect any compromise in the patient's medical care. Plan discussed with: Patient, Other CARMEN BOX MD March 13, 2025 23:31
[2025-03-14] VITALS (8 sets, daily range): BP systolic 117–136; BP diastolic 71–88; PULSE 42–90; RESP 16–19; TEMP 97.3–98.8; O2SAT 91–98
[2025-03-14] MEDS ORDERED: LORazepam 2MG/ML-1ML VIAL IV PRN ×2 (00:15)
[2025-03-14] MEDS: levETIRAcetam 500 MG TAB PO SCH (00:23)
[2025-03-14] MEDS ORDERED: RIVA20TA PO (04:55)
--- NOTE | 2025-03-14 16:04 | DVH ---
PROCEDURE: MRI BRAIN HEAD WO CONTRAST Indication: sz COMPARISON: 03/12/2025 TECHNIQUE: Multiplanar multisequence images of the brain are obtained. FINDINGS: There is no abnormal diffusion restriction. There are mild periventricular and subcortical white nate er T2 and FLAIR hyperintense changes. There is no intracranial hemorrhage. No extra-axial fluid colle ction, mass effect or midline shift. The ventricles are midline and normal in size. The cisterns are patent. Normal intracranial flow voids are preserved. No abnormal susceptibility signal. The mastoids demonstrate large bilateral mastoid effusions. Mucosal thickening of the ethmoids. The v isualized orbits are unremarkable. IMPRESSION: 1. No acute cerebrovascular ischemia. 2. Mild chronic microvascular ischemic changes. 3. Large bilateral mastoid effusions.
[2025-03-14] MEDS: ACETAMINOPHEN 325 MG TAB PO PRN (22:06)
--- NOTE | 2025-03-14 23:35 | DVHPN2 ---
Progress Note - Dictate Date Seen: March 14, 2025 Medical Necessity Reason Pt with a Central, PICC or Fol: No Subjective Mr. Moore is a right-handed male with a history of hypertension, hypothyroid disease, atrial fibrillation, chronic low back pain. He came to the [facility] on 03/12/2025 with a chief complaint of seizure activity. I have seen and examined the patient was, I have discussed with his nurse, he is doing fine, no seizure activity, alert and oriented. No new complaints Urinalysis, 03/12/2025: WBC: One, urine leukocyte esterase: Negative CBC, 03/13/2025: Unremarkable CMP, 03/13/2025: TBI: 1.2 Reports from office EEG, 02/23/24 Normal EEG, 02/14/25: Normal 61-minute EEG CT head 12/27/23: Unremarkable CT head, 03/12/2025: No CT evidence of acute intracranial abnormality MRI head, 03/14/2025: 1. No acute cerebrovascular ischemia. 2. Mild chronic microvascular ischemic changes. 3. Large bilateral mastoid effusions vital signs Vital Sign Date Time Temp Pulse Resp B/P (MAP) Pulse Ox O2 Delivery O2 Flow Rate FiO2 03/14/25 21:25 68 122/74 03/14/25 21:00 97.6 17 97 97.6 03/14/25 20:00 Room Air* 0 21 Total Intake and Output 03/13/25 03/13/25 03/14/25 14:59 22:59 06:59 Intake Total 950 ml 650 ml Output Total 3 ml 4 ml Balance 947 ml 646 ml medications Current Medications Medications Dose Ordered Sig/Nayeli Route Start Time Stop Time Status Last Admin Dose Admin Acetaminophen/ Hydrocodone Bitart 1 tab Q4HP PRN PO 03/12/25 13:45 03/13/25 16:10 1 TAB Ondansetron HCl 4 mg Q4HP PRN IV 03/12/25 13:45 Docusate Sodium 100 mg BIDPRN PRN PO 03/12/25 13:45 Acetaminophen 650 mg Q6HP PRN PO 03/12/25 13:45 03/14/25 22:06 650 MG Nitroglycerin 0.4 mg Q5MINP PRN SL 03/12/25 13:45 Morphine Sulfate 2 mg Q30M PRN IV 03/12/25 13:45 Levothyroxine Sodium 50 mcg QAM PO 03/13/25 07:00 03/14/25 05:35 50 MCG Metoprolol Tartrate 25 mg BID PO 03/12/25 22:00 03/14/25 21:25 25 MG Atorvastatin Calcium 10 mg HS PO 03/12/25 22:00 03/14/25 21:24 10 MG Diagnostic Test (Pha) 1 strip ACHS 03/12/25 22:00 03/14/25 21:26 1 STRIP Insulin Human Regular HS SC 03/12/25 22:00 Insulin Human Regular AC SC 03/13/25 07:00 Dextrose 50 ml UD PRN IV 03/12/25 18:00 Levetiracetam 1,000 mg BID PO 03/14/25 00:15 03/14/25 21:24 1,000 MG Lorazepam 1 mg Q5MINP PRN IV 03/14/25 00:15 Lorazepam 1 mg ONCE PRN IV 03/14/25 00:15 objective General: the patient is well developed and nourished. No acute distress. MENTAL STATUS: Awake and alert. Oriented to person, place, time and general circumstances. Able to give personal history. SPEECH, LANGUAGE, HIGHER CORTICAL FUNCTION: no aphasia or dysathria. CRANIAL NERVES: Pupils are equal, round and reactive. EOMs full and conjugate. No nystagmus. Facial sensation intact in all three divisions bilaterally. Mandibular strength intact. Facial muscles symmetrical and strength intact. SENSATION: Sensation to touch and pinprick is normal. MOTOR: Normal tone in the upper and lower extremity. Normal muscle bulk. No fasciculations. No abnormal movements or posturing. Muscle strength of the major groups in the extremities is 5/5. REFLEXES: Deep tendon reflexes normal and symmetrical. No pathological reflexes. CEREBELLAR/COORDINATION: Finger to nose and heel to geronimo are normal bilaterally. GAIT/STATION: Unremarkable laboratory and microbiology Laboratory Tests 03/13/25 06:46 Test 03/13/25 06:46 Range/Units Serum Glucose 106 # 74-106 mg/dL Problem List Status epileptics Grand mal seizure Mood swing secondary to Keppra side effects Assessment/Plan Monitoring Supportive treatment Telemetry D/C Keppra to 1000 mg b.i.d. Try Briviact 75 mg b.i.d.(sample was delivered to his nurse) Atbanner for seizure breakthrough More recommendation per clinical course This medical document was created using an electronic medical record system with [employer] computerized dictation system. Although this document has been carefully reviewed, there may still be some phonetic and typographical errors. These areas are purely typographical due to imperfections of the software programs, and do not reflect any compromise in the patient's medical care Prognosis poor Plan discussed with: Patient, Other CARMEN BOX MD March 14, 2025 23:35
[2025-03-15] VITALS (7 sets, daily range): BP systolic 106–124; BP diastolic 65–79; PULSE 71–89; RESP 17; TEMP 97.3–98.1; O2SAT 97–99
[2025-03-15] MEDS ORDERED: BRIVIACT 50 MG PO SCH (06:00)
[2025-03-15] MEDS: BRIVIACT 50 MG PO SCH (10:02)
--- NOTE | 2025-03-15 12:40 | DVHPN2 ---
Subjective The patient is seen and examined at bedside. No seizure activity today. Reviewed: Care Plan, H&P, Labs, Medications, Previous Orders Changes from previous H/P or p: No Changes Eyes: No Pain, No Vision change, No Conjunctivae inflammation, No Eyelid inflammation, No Other, No Redness ENT: No Ear pain, No Ear discharge, No Nose pain, No Nose discharge, No Nose congestion, No Mouth pain, No Mouth swelling, No Throat pain, No Throat swelling, No Other Cardiovascular: No Chest Pain, No Palpitations, No Orthopnea, No Paroxysmal Noc. Dyspnea, No Edema, No Lt Headedness, No Other Respiratory: No Cough, No Dry, No Shortness of breath, No SOB with excertion, No Wheezing, No Hemoptysis, No Pleuritic Pain, No Sputum, No Other Gastrointestinal: No Nausea, No Vomiting, No Abdominal Pain, No Diarrhea, No Constipation, No Melena, No Hematochezia, No Other Genitourinary: No Dysuria, No Frequency, No Incontinence, No Hematuria, No Retention, No Other Musculoskeletal: No other, No neck pain, No shoulder pain, No arm pain, No back pain, No hand pain, No leg pain, No foot pain Skin: No Rash, No Lesions, No Jaundice, No Bruising, No Other Objective Vitals Vital Signs Date Time Temp Pulse Resp B/P (MAP) Pulse Ox O2 Delivery O2 Flow Rate FiO2 03/15/25 10:02 71 122/68 03/15/25 09:25 97.7 17 98 97.7 03/15/25 08:00 Room Air* 0 21 Intake/Output Intake and Output 03/15/25 07:00 Intake Total 1396 ml Balance 1396 ml Intake Oral 1396 ml # Voids 15 # Bowel Movements 3 General Appearance: Alert, Oriented X3, Cooperative, No acute distress HEENT: Atraumatic, PERRLA, EOMI, Mucous membr. moist/pink Neck: Supple Lungs: Clear to auscultation, Normal air movement Cardiovascular: Regular rate, Normal S1, Normal S2, No murmurs, Gallops, Rubs Abdomen: Normal bowel sounds, Soft, No tenderness Neuro: Cranial nerves 3-12 NL Psych/Mental Status: Mental status NL Medications Current Medications Medications Dose Ordered Sig/Nayeli Route Start Time Stop Time Status Last Admin Dose Admin Acetaminophen/ Hydrocodone Bitart 1 tab Q4HP PRN PO 5/6/25 13:45 03/15/25 10:29 1 TAB Ondansetron HCl 4 mg Q4HP PRN IV 03/12/25 13:45 Docusate Sodium 100 mg BIDPRN PRN PO 03/12/25 13:45 Acetaminophen 650 mg Q6HP PRN PO 03/12/25 13:45 03/14/25 22:06 650 MG Nitroglycerin 0.4 mg Q5MINP PRN SL 03/12/25 13:45 Morphine Sulfate 2 mg Q30M PRN IV 03/12/25 13:45 Levothyroxine Sodium 50 mcg QAM PO 03/13/25 07:00 03/15/25 05:54 50 MCG Metoprolol Tartrate 25 mg BID PO 03/12/25 22:00 03/15/25 10:02 25 MG Atorvastatin Calcium 10 mg HS PO 03/12/25 22:00 03/14/25 21:24 10 MG Diagnostic Test (Pha) 1 strip ACHS 03/12/25 22:00 03/15/25 11:21 1 STRIP Insulin Human Regular HS SC 03/12/25 22:00 Insulin Human Regular AC SC 03/13/25 07:00 Dextrose 50 ml UD PRN IV 03/12/25 18:00 Lorazepam 1 mg Q5MINP PRN IV 03/14/25 00:15 Lorazepam 1 mg ONCE PRN IV 03/14/25 00:15 Patient Own Medication 50 mg TID PO 03/15/25 06:00 UNV Patient Own Medication 1 BID PO 03/15/25 10:00 03/15/25 10:02 1 Laboratory Results Laboratory Tests 03/13/25 06:46 Urinalysis Test 03/12/25 09:17 Urine Color Light-yellow (Yellow) Urine Clarity Clear (Clear) Urine pH 5.0 (5.0-9.0) Urine Specific [place] 1.018 (1.001-1.035) Urine Protein 1+ (Negative) H Urine Ketones Trace (Negative) Urine Blood 2+ /uL (Negative) H Urine Nitrite Negative (Negative) Urine Bilirubin Negative (Negative) Urine Urobilinogen Normal mg/dL (Negative) Urine Leukocyte Esterase Negative /uL (Negative) Urine RBC 1 /hpf (0 - 3) Urine Microscopic WBC < 1 /HPF (0-3) Urine Squamous Epithelial Cells None seen /hpf (<5) Urine Bacteria Few /hpf (None Seen) H Urine Hyaline Casts Mod /lpf (0 - 2) Urine Mucus Few (None Seen) Urine Yeast (Budding) Occasional /hpf (None Urine Glucose 3+ mg/dL (Normal) H Assessment/Plan Assessment/Plan Seizure disorder, Hyperglycemia, Hypothyroidism, Hyperlipidemia, Continuing current management. Sliding scale insulin for now Per neurologist, D/C Keppra to 1000 mg b.i.d. Try Briviact 75 mg b.i.d.(sample was delivered to his nurse) Ativan for seizure breakthrough. DC pending to see if patient tolerate the new meds. MRI brain review and negative. This medical document was created using an electronic medical record system with [employer] computerized dictation system. Although this document has been carefully reviewed, there may still be some phonetic and typographical errors. These areas are purely typographical due to imperfections of the software programs, and do not reflect any compromise in the patient's medical care. Plan discussed with: Patient Date of Service: March 14, 2025 Billing Provider: EDINSON CHIU MD Common Visit Codes: [id number] INP/OBS CARE(HIGH) EDINSON CHIU MD March 15, 2025 12:40
[2025-03-15] MEDS ORDERED: [UNRECOGNIZED DRUG - CODE] PO (12:41)
--- NOTE | 2025-03-19 14:48 | DVHDS2 ---
Discharge Summary Date of Admission March 12, 2025 at 13:43 Date of Discharge: March 15, 2025 Admitting Diagnosis Seizure disorder, Hyperglycemia, Hypothyroidism, Hyperlipidemia, Labs/Diagnostic Data: Laboratory Results Test 03/15/25 16:22 03/13/25 06:46 03/12/25 11:00 03/12/25 09:17 POC Glucose 61 mg/dl (70-106) White Blood Count 9.6 10^3/uL (4.4-10.8) Red Blood Count 4.37 10^6/uL (4.5-5.90) Hemoglobin 13.7 g/dL (13.5-17.5) Hematocrit 39.5 % (41.0-53.0) Mean Corpuscular Volume 90.6 fL (80.0-100.0) Mean Corpuscular Hemoglobin 31.5 pg (28.0-32.0) Mean Corpuscular Hemoglobin Concent 34.7 g/dL (32.0-36.0) Red Cell Distribution Width 13.5 % (11.8-14.3) Platelet Count 178 10^3/uL (140-450) Mean Platelet Volume 7.3 fL (6.9-10.8) Neutrophils (%) (Auto) 78.6 % (37.0-80.0) Lymphocytes (%) (Auto) 11.0 % (10.0-50.0) Monocytes (%) (Auto) 9.3 % (0.0-12.0) Eosinophils (%) (Auto) 0.5 % (0.0-7.0) Basophils (%) (Auto) 0.6 % (0.0-2.0) Neutrophils # (Auto) 7.5 10 ^3/uL (1.6-8.6) Lymphocytes # (Auto) 1.1 10 ^3/uL (0.4-5.4) Monocytes # (Auto) 0.9 10 ^3/uL (0-1.3) Eosinophils # (Auto) 0 10 ^3/uL (0-0.8) Basophils # (Auto) 0.1 10 ^3/uL (0-0.2) Nucleated Red Blood Cells 0.0 % Sodium Level 144 mmol/L (136-145) Potassium Level 4.1 mmol/L (3.5-5.1) Chloride Level 112 mmol/L (98-107) Carbon Dioxide Level 25 mmol/L (20-31) Anion Gap 7 (5-15) Blood Urea Nitrogen 15 mg/dL (9-23) Creatinine 0.82 mg/dL (0.700-1.30) Glomerular Filtration Rate Calc 95 mL/min (>90) BUN/Creatinine Ratio 18.3 (10.0-20.0) Serum Glucose 106 mg/dL (74-106) Hemoglobin A1c 5.1 % A1C (<5.7) Calcium Level 9.8 mg/dL (8.7-10.4) Total Bilirubin 1.2 mg/dL (0.2-1.0) Aspartate Amino Transferase (AST) 22 U/L (13-40) Alanine Aminotransferase (ALT) 25 U/L (7-40) Alkaline Phosphatase 50 U/L (46-116) Total Protein 6.0 g/dL (5.7-8.2) Albumin 4.1 g/dL (3.2-4.8) Thyroid Stimulating Hormone (TSH) 0.34 uIU/mL (0.55-4.78) Lactic Acid Level 1.4 mmol/L (0.4-2.0) Troponin I High Sensitivity 7 ng/L (</=54) Urine Color Light-yellow (Yellow) Urine Clarity Clear (Clear) Urine pH 5.0 (5.0-9.0) Urine Specific [place] 1.018 (1.001-1.035) Urine Protein 1+ (Negative) Urine Ketones Trace (Negative) Urine Blood 2+ /uL (Negative) Urine Nitrite Negative (Negative) Urine Bilirubin Negative (Negative) Urine Urobilinogen Normal mg/dL (Negative) Urine Leukocyte Esterase Negative /uL (Negative) Urine RBC 1 /hpf (0 - 3) Urine Microscopic WBC < 1 /HPF (0-3) Urine Squamous Epithelial Cells None seen /hpf (<5) Urine Bacteria Few /hpf (None Seen) Urine Hyaline Casts Mod /lpf (0 - 2) Urine Mucus Few (None Seen) Urine Yeast (Budding) Occasional /hpf (None Urine Glucose 3+ mg/dL (Normal) Other Laboratory Tests 03/13/25 06:46 Brief Hx & Hospital Course: This is a 69 years old male with past medical history of hypothyroidism, hyperlipidemia, and seizure come to emergency department because of seizure. The patient he had seizure at home witnessed by his . She called and EMS and took him to the hospital. The patient was postictal and only alert to name for the 1st day. The patient also had laceration at his tongue. However the patient did not have any seizure in the hospital. The patient was started on Keppra IV and Ativan p.r.n. seizure. MRI of the brain showed no acute process. CT head also showed no acute process. Dr. Box, his neurologist see the patient and recommend to try Briviact 75 mg b.i.d.(sample was delivered to his nurse per Dr. Box) apparently per Dr. Box as outpatient the patient was started on Keppra since 2021. The patient had severe mood swings and can not tolerate it. Dr. Box switch the patient to and new medication Briviact however the patient did not pick it up. Per patient it was very expensive and he had to co-pay 500 dollars per month so he did not pick it up. This time Dr. Box give him sample of the medication. So I am discharge the patient home today. Advised the patient to follow up with primary care physician 1-2 weeks. Follow up with Dr. Box per schedule. Activity as tolerated. Diet per home diet. Physical exam: HEENT: Normocephalic atraumatic pupils equal react to light and accommodation. Extraocular muscles intact, conjunctiva pink, oropharynx moist, no thrush, no exudate. Lymphatic: No lymphadenopathy Cardiovascular exam: S1, S2 was heard. No murmurs, rubs, gallops Lung: Clear on auscultation bilaterally, no wheeze, rale, rhonchi. GI: Abdominal soft, nondistended, nontenderness, positive bowel sounds. Extremity: No crepitus, cyanosis, edema. Pedal pulses present bilateral. Full range of motion. Skin: Normal turgor, no rash. Psych: Alert, oriented x3. Neurology: No focal deficits, cranial nerve II to XII grossly intact. This medical document was created using an electronic medical record system with [employer] direct computerized dictation system. Although this document has been carefully reviewed, there may still be some phonetic and typographical errors. These areas are purely typographical due to imperfections of the software programs, and do not reflect any compromise in the patient's medical care. Condition at Discharge: Stable Final Diagnosis/Problems List Seizure disorder, Hyperglycemia, Hypothyroidism, Hyperlipidemia, Discharge Disposition: Home Discharge Instruct/Medications Diet: Regular Activity: No Restrictions, As Tolerated Follow Up/Referral: PCP 1-[address] BOX, NEUROLOGIST PER SCHEDULE Medications: BRIVIACT 75MG BID Discharge Statement: "Patient was advised to return to the ER or call 911 if any headaches, dizziness, shortness of breath, chest pain, abdominal pain, bleeding, fevers, or worsening of medical condition. Patient was counseled about treatment plan, medications, possible side effects, patient�verbalized understanding. All questions were answered to the best of my ability. This discharge took greater then 30 minutes in planning, reviewing documentation, counseling the patient, and discussing with other team members." ASSESSMENT ASSESSMENT Assessment SEIZURES Date of Service: March 15, 2025 Billing Provider: EDINSON CHIU MD Common Visit Codes: 23412-VHR/OBS DISCH DAY >30min EDINSON CHIU MD March 19, 2025 14:48
== END 2025-03-15 22:00 | disposition home or self-care (01) | DRG 101 ==
LOC: EDBD 07:09 → ER 07:09 → OVERFLOW 13:43 → TELE-WESTW 21:50
PROVIDERS: ADMIT Internal Medicine; ATTEND Internal Medicine
DX: G40.409 Other generalized epilepsy and epileptic syndromes, not intractable, without status epilepticus (principal); E78.5 Hyperlipidemia, unspecified; E03.9 Hypothyroidism, unspecified; G89.29 Other chronic pain; R73.9 Hyperglycemia, unspecified; F32.A Depression, unspecified; I10 Essential (primary) hypertension; I48.91 Unspecified atrial fibrillation; Z79.899 Other long term (current) drug therapy; Z95.0 Presence of cardiac pacemaker
CPT/HCPCS: 36415; 70450; 70551; 71045; 80048; 80053; 81001; 82962; 83036; 83605; 84443; 84484; 85025; 93005; 96365; 97163; 99291; G0378